=== PATIENT | female | born 2000 | race Caucasian/White ===

== ENCOUNTER 2020-11-21 04:54 | Emergency (ER) | payer OTHER ==
[~2020-11-21] VITALS: Ht 170.2 cm; Wt 61.2 kg
[2020-11-21 05:00] VITALS: BP 132/91
--- NOTE | 2020-11-21 05:28 | NUR ---
released by [facility] badge number #[id number]
--- NOTE | 2020-11-21 05:30 | NUR ---
seen by FERNANDO no nursing interventions needed for patient
[2020-11-21 05:32] VITALS: BP 132/91
--- NOTE | 2020-11-21 05:32 | NUR ---
Patient discharged with v/s stable. Written and verbal after care instructions given and explained. Patient verbalized understanding. Ambulatory with steady gait. ID band removed. All questions addressed prior to discharge. Advised to follow up with PMD.
--- NOTE | 2020-11-21 06:25 | NUR ---
Vianey crandall in [facility] - 11/21/20 at 0613 by RULA released by ANGEL joyner number #[id number]
== END 2020-11-21 05:32 ==
LOC: MED 04:54
DX: F10.129 Alcohol abuse with intoxication, unspecified (principal); Z02.89 Encounter for other administrative examinations; V89.2XXA Person injured in unspecified motor-vehicle accident, traffic, initial encounter; Y93.89 Activity, other specified; Y92.89 Other specified places as the place of occurrence of the external cause; Y99.8 Other external cause status
CPT/HCPCS: 99281; 99283